=== PATIENT | male | born 1950 | race Caucasian/White ===

== ENCOUNTER → 2016-10-26 | Outpatient (CLI) | payer MEDICARE, OTHER | END | disposition home or self-care (01) | LOC: PCVCIMAG 10:55 | PROVIDERS: ATTEND Internal Medicine | DX: I34.0 Nonrheumatic mitral (valve) insufficiency (principal); I34.1 Nonrheumatic mitral (valve) prolapse | CPT/HCPCS: 93325; 93351 ==

== ENCOUNTER → 2018-05-14 | Outpatient (CLI) | payer MEDICARE, OTHER | END | disposition home or self-care (01) | LOC: PCVCCLINIC 16:20 | PROVIDERS: ATTEND Internal Medicine | DX: Z51.81 Encounter for therapeutic drug level monitoring (principal); I10 Essential (primary) hypertension; E78.5 Hyperlipidemia, unspecified; E66.9 Obesity, unspecified; G47.30 Sleep apnea, unspecified; Z87.891 Personal history of nicotine dependence; Z72.89 Other problems related to lifestyle | CPT/HCPCS: 36415; 85610 ==

== ENCOUNTER → 2018-05-16 | Outpatient (CLI) | payer MEDICARE, OTHER ==
--- NOTE | 2018-05-16 15:00 | PCVCIMAG ---
APPROVED REPORT Study performed: 05/16/2018 13:09:21 EXAM: Comprehensive 2D, Doppler, and color-flow Echocardiogram Patient Location: Echo lab Status: routine BSA: 2.04 HR: 72 bpmBP: 136/64 mmHg Rhythm: NSR Other Information Study Quality: Adequate Risk Factors: Cardiac Risk Factors: Hyperlipidemia, HTN Indications Mitral Valve Prolapse Murmur Chest Pain 2D Dimensions IVSd: 10.84 (7-11mm)LVOT Diam: 20.00 (18-24mm) LVDd: 57.40 mm PWd: 10.95 (7-11mm)Ascending Ao: 33.39 (22-36mm) LVDs: 36.70 (25-40mm) Left Atrium: 44.29 (27-40mm) Aortic Root: 24.43 mm Volumes Left Atrial Volume (Systole) Single Plane 4CH: 69.08 mLSingle Plane 2CH: 68.85 mL LA ESV Index: 36.00 mL/m2 Aortic Valve AoV Peak Albert.: 1.97 m/s AO Peak Gr.: 15.45 mmHgLVOT Max P.52 mmHg LVOT Max V: 1.17 m/s LOGAN Vmax: 1.82 cm2 Mitral Valve E/A Ratio: 1.6 MV Decel. Time: 215.35 ms MV E Max Albert.: 1.66 m/s MV A Albert.: 1.03 m/s MV PHT: 62.45 ms IVRT: 34.60 ms TDI E/Lateral E': 16.60E/Medial E': 15.09 Medial E' Albert.: 0.11 m/s Lateral E' Albert.: 0.10 m/s Pulmonary Valve PV Peak Albert.: 1.06 m/sPV Peak Gr.: 4.50 mmHg Pulmonary Vein P Vein S: 0.81 m/sP Vein A: 0.29 m/s P Vein D: 1.04 m/sP Vein A Dur.: 96.9 msec P Vein S/D Ratio: 0.78 Tricuspid Valve TR Peak Albert.: 2.82 m/sRAP Estimate: 7.00 mmHg TR Peak Gr.: 31.82 mmHg PA Pressure: 39.00 mmHg Left Ventricle The left ventricle is normal size. There is normal LV segmental wall motion. Borderline concentric left ventricular hypertrophy. Left ventricular systolic function is normal. The left ventricular ejection fraction is within the normal range. LVEF is 65%. The left ventricular diastolic function is normal. Right Ventricle The right ventricle is normal size. The right ventricular systolic function is normal. Atria The left atrium size is normal. The right atrium size is normal. Aortic Valve The aortic valve is normal in structure. No aortic regurgitation is present. There is no aortic valvular stenosis. Mitral Valve Posterior mitral leaflet prolapse. Cannot rule out flail component. Severe mitral regurgitation. No evidence of mitral valve stenosis. Tricuspid Valve The tricuspid valve is normal in structure. Trace tricuspid regurgitation. Pulmonary artery pressure is 40 mmHg. Pulmonic Valve The pulmonary valve is normal in structure. Mild pulmonic regurgitation. Great Vessels The aortic root is normal in size. IVC is normal in size and collapses >50% with inspiration. Pericardium There is no pericardial effusion. <Conclusion> Left ventricular systolic function is normal. There is normal LV segmental wall motion. LVEF is 65%. The aortic valve is normal in structure. No aortic regurgitation or stenosis Posterior mitral leaflet prolapse. Cannot rule out flail component. Severe mitral regurgitation. Trace tricuspid regurgitation. Pulmonary artery pressure is 40 mmHg. There is no pericardial effusion.
== END | disposition home or self-care (01) ==
LOC: PCVCIMAG 13:11
PROVIDERS: ATTEND Internal Medicine
DX: I34.0 Nonrheumatic mitral (valve) insufficiency (principal); I34.1 Nonrheumatic mitral (valve) prolapse; I25.10 Atherosclerotic heart disease of native coronary artery without angina pectoris; I10 Essential (primary) hypertension; E78.00 Pure hypercholesterolemia, unspecified; R06.02 Shortness of breath; G47.30 Sleep apnea, unspecified; R01.1 Cardiac murmur, unspecified
CPT/HCPCS: 93306

== ENCOUNTER → 2018-05-27 | Outpatient (CLI) | payer MEDICARE, OTHER | END | disposition home or self-care (01) | LOC: PCVCCLINIC 11:00 | PROVIDERS: ATTEND Internal Medicine | DX: I34.1 Nonrheumatic mitral (valve) prolapse (principal); R06.09 Other forms of dyspnea; I10 Essential (primary) hypertension; E78.5 Hyperlipidemia, unspecified; Z87.891 Personal history of nicotine dependence | CPT/HCPCS: G0463 ==

== ENCOUNTER → 2018-05-30 | Outpatient (CLI) | payer OTHER ==
[~2018-05-30] MED LIST: BENZOCAINE ONE 20% MUCOSAL SPRAY.; IV NORMAL SALINE 500ML BAG 500 ML ONE; MIDAZOLAM HCL/PF 2 MG/2 ML VIAL. ONE; fentaNYL PF VIAL 100 MCG/2 ML VIAL ONE
--- NOTE | 2018-05-30 12:15 | PCVCIMAG ---
APPROVED REPORT Study performed: 05/30/2018 08:56:32 EXAM: Transesophageal Echocardiogram Patient Location: [facility] Room #: 1 Status: routine BSA: 2.06 HR: 78 bpmBP: 126/68 mmHg Rhythm: NSR Other Information Study Quality: Good Indications Mitral Valve Prolapse Echo Enhancing Agent Indication: Rule out Shunt Agent(s) / Amount(s) Used: Agitated Saline 10 cc Comments: Negative contrast study for shunt flow. 2D Dimensions IVSd: 8.99 (7-11mm) LVDd: 54.21 mm PWd: 10.25 (7-11mm) LVDs: 31.74 (25-40mm) Left Atrium: 36.45 (27-40mm) Procedure After obtaining informed consent, patient underwent transesophageal echo in the [employer]. Type of Sedation : Conscious Sedation Sedation was administered by Katelyn Little RN. Sedation start time: 924 Case end Time: 939 Sedation was achieved intravenously with: Versed (4 mg) Fentanyl (100mcg) Transesophageal probe was inserted and advanced into esophagus without difficulty by Antonio Barrios MD. Echo enhancement indication: R/O Septal defect. Echo enhancement agent administered: Agitated Saline The GISELL was performed without complications. Throughout the procedure, the blood pressure, pulse oximetry, cardiac rhythm, and rate were monitored. The patient tolerated the procedure without adverse effects. Recovery from conscious sedation was uneventful and vital signs were stable. Left Ventricle The left ventricle is normal size. There is normal LV segmental wall motion. There is normal left ventricular wall thickness. There is no ventricular septal defect visualized. The left ventricular systolic function is normal. The left ventricular ejection fraction is within the normal range. LVEF is 60-65%. Right Ventricle The right ventricle is normal size. Atria The left atrium size is normal. No thrombus is visualized in the left atrium or appendage. The interatrial septum is intact with no evidence for an atrial septal defect. The right atrium size is normal. Aortic Valve The aortic valve is normal in structure, trileaflet No aortic regurgitation is present. There is no aortic valvular stenosis. Mitral Valve Normal anterior leaflet. Posterior leaflet prolapse with flail segment. Severe mitral regurgitation. No evidence of mitral valve stenosis. Tricuspid Valve The tricuspid valve is normal in structure. There is no tricuspid valve regurgitation noted. Pulmonic Valve The pulmonary valve is normal in structure. There is no pulmonic valvular regurgitation. Great Vessels The aortic root is normal in size. The ascending aorta is normal in size. Mild atherosclerotic plaquing. Aortic arch is normal in caliber. IVC is normal in size and collapses >50% with inspiration. Pericardium There is no pericardial effusion. There is no pleural effusion. <Conclusion> The left ventricular systolic function is normal. EF 65% No thrombus is visualized in the left atrium or appendage. The aortic valve is normal in structure, trileaflet. No aortic regurgitation or stenosis No shunting by contrast bubble injection. Normal anterior mitral leaflet. Posterior leaflet prolapse with flail segment. Severe mitral regurgitation. The tricuspid valve is normal in structure. No tricuspid valve regurgitation. There is no pericardial effusion.
== END | disposition home or self-care (01) ==
LOC: PCVCIMAG 09:05
PROVIDERS: ATTEND Internal Medicine
DX: I34.0 Nonrheumatic mitral (valve) insufficiency (principal); I10 Essential (primary) hypertension
CPT/HCPCS: 93312; 93325; J2250; J3010; J7040